=== PATIENT | male | born 1995 | race African-American/Black ===

== ENCOUNTER → 2022-10-13 | Emergency (ER) | payer OTHER ==
[~2022-10-13] VITALS: Ht 182.9 cm; Wt 86.2 kg
== END | disposition home or self-care (01) ==
LOC: ER 07:38
DX: R07.89 Other chest pain (principal); F41.9 Anxiety disorder, unspecified

== ENCOUNTER 2022-12-20 06:26 | Emergency (ER) | payer OTHER ==
[~2022-12-20] VITALS: Ht 182.9 cm; Wt 86.2 kg
[2022-12-20] MEDS ORDERED: TAMS0.4C PO (10:23)
[2022-12-20] MEDS ORDERED: KETO10TA2 PO (10:23)
== END 2022-12-20 10:47 | disposition home or self-care (01) ==
LOC: ER 06:26
DX: N20.1 Calculus of ureter (principal); R10.9 Unspecified abdominal pain

== ENCOUNTER 2023-01-02 11:45 | Emergency (ER) | payer OTHER ==
[~2023-01-02] VITALS: Ht 182.9 cm; Wt 88.5 kg
[~2023-01-02 11:45] MED LIST: KETO10TA2 PO; TAMS0.4C PO
== END 2023-01-02 16:10 | disposition home or self-care (01) ==
LOC: ER 11:45
DX: J02.9 Acute pharyngitis, unspecified (principal); B34.9 Viral infection, unspecified; Z20.822 Contact with and (suspected) exposure to COVID-19

== ENCOUNTER 2023-03-06 10:36 | Emergency (ER) | payer OTHER ==
[~2023-03-06] VITALS: Ht 182.9 cm; Wt 83.9 kg
== END 2023-03-06 15:29 | disposition home or self-care (01) ==
LOC: ER 10:36
DX: R10.31 Right lower quadrant pain (principal)

== ENCOUNTER 2023-06-27 11:00 | Emergency (ER) | payer OTHER ==
[~2023-06-27] VITALS: Ht 182.9 cm; Wt 86.2 kg
[2023-06-27] MEDS ORDERED: DICLOFENAC SODI75 MG PO (15:03)
== END 2023-06-27 15:14 | disposition home or self-care (01) ==
LOC: ER 11:00
DX: I86.1 Scrotal varices (principal); N50.811 Right testicular pain